=== PATIENT | male | born 1965 | race Caucasian/White ===

== ENCOUNTER → 2020-08-29 10:14 | Outpatient (BNVA) | payer OTHER, SELFPAY | PROVIDERS: Family Provider Internal Medicine; PCP Nurse Practitioner Family; Visit Provider Urology | DX: Z12.5 Encounter for screening for malignant neoplasm of prostate (principal); R79.89 Other specified abnormal findings of blood chemistry; N52.9 Male erectile dysfunction, unspecified | CPT/HCPCS: 81003; 84403; G0103 ==

== ENCOUNTER → 2024-02-15 14:30 | Outpatient (BNVA) | payer OTHER, SELFPAY | PROVIDERS: PCP Nurse Practitioner Family; Visit Provider Podiatrist Foot & Ankle Surgery | DX: E11.42 Type 2 diabetes mellitus with diabetic polyneuropathy; L60.3 Nail dystrophy; M20.41 Other hammer toe(s) (acquired), right foot; M20.42 Other hammer toe(s) (acquired), left foot | CPT/HCPCS: 73630 ==

== ENCOUNTER 2024-03-22 16:45 | Outpatient (CLI) | payer OTHER, SELFPAY | END 2024-03-22 16:46 | disposition home or self-care (01) | LOC: SLEEP 03-23 09:19 | PROVIDERS: PCP Nurse Practitioner Family; Visit Provider Nurse Practitioner Family | DX: G47.33 Obstructive sleep apnea (adult) (pediatric) (principal); G47.36 Sleep related hypoventilation in conditions classified elsewhere | CPT/HCPCS: G0399 ==

== ENCOUNTER 2024-06-07 20:00 | Outpatient (CLI) | payer OTHER, SELFPAY | END 2024-06-07 20:01 | disposition home or self-care (01) | LOC: SLEEP 22:22 | PROVIDERS: PCP Nurse Practitioner Family; Visit Provider Nurse Practitioner Family | DX: G47.33 Obstructive sleep apnea (adult) (pediatric) (principal); Z99.89 Dependence on other enabling machines and devices | CPT/HCPCS: 95811 ==

== ENCOUNTER 2025-04-18 13:52 | Outpatient (CLI) | payer OTHER, SELFPAY ==
--- NOTE | 2025-04-18 14:03 | MR_ITS ---
WS: [id number] MRA HEAD TECHNIQUE: Axial 3-D TOF images obtained with axial images and axial, sagittal, and coronal 2-D reformatted images. CLINICAL INFORMATION: BINOCULAR VISION DEFECT, BILATERAL, UNSPECIFIED ISORDER OF COMPARISON: None. FINDINGS: Distal vertebral arteries are patent. Basilar artery is patent. 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 Normal vascularity to the TRAILER ASSEMBLER territory bilaterally. Both ICAs are patent at the skull base. Patent anterior communicating artery. Normal vascularity to the CLARISSE and MCA territories bilaterally. No evidence of proximal flow-limiting stenosis. Suggestion of a very tiny incidental aneurysm in the LEFT carotid siphon just prior to the takeoff of the ophthalmic artery only seen on the sagittal reformatted images. This measures approximate 1.5 mm. MR/MR angio head wo con [id number] IMPRESSION: 1. No evidence of proximal flow-limiting stenosis. 2. 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 3. Possible very tiny incidental aneurysm in the LEFT carotid siphon just prox imal to the takeoff of the ophthalmic artery measuring 1.5 mm only well seen on the sagittal reformatted images. 4. No other suspicious findings.
--- NOTE | 2025-04-18 14:08 | USCV_ITS ---
David Mcgraw Age: 59 Gender: M : 1965 Exam Date: 04/18/2025 14:21 Ordering Phys: Cristina Tafoya [employer] T[employer]ER [employer]OM[employer]PER T[employer]ER Technologist: USR Exam Location: [facility] – [place], [place] Indication: dizziness Risk Factors: Previous Vascular Surgery: Right Brachial BP: / Left Brachial BP: / Right Left Velocity (cm/s) Spectral Plaque Velocity (cm/s) Spectral Plaque Syst/Diast Broadening Syst/Diast Broadening 50.40/ 16.70 Prox CCA 71.50 / 29.20 74.20/ 28.30 Mid CCA 73.20 / 33.50 56.20/ 17.00 Distal CCA 85.60 / 20.90 55.40/ 19.50 Prox ICA 24.30 / 8.60 43.10/ 19.50 Mid ICA 33.30 / 14.20 40.70/ 19.50 Distal ICA 43.50 / 23.20 58.60 ECA 50.20 1.00 ICA/CCA 0.30 Antegrade Vertebral Antegrade 21.10/ 7.30 cm/s 37.00/ 10.10 cm/s Tri Subclavian Tri 70.80 65.80 FINDINGS Comparison: none available. No significant elevation of systolic or diastolic velocities. Waveforms are normal. No plaque identified. CONCLUSIONS Normal carotid doppler ultrasound. Dr. Shreya Maurice DO (Electronically Signed) Final Date: 18 April 2025 14:42 S
== END 2025-04-18 13:53 | disposition home or self-care (01) ==
LOC: RAD 13:52
PROVIDERS: PCP Nurse Practitioner Family; Visit Provider Nurse Practitioner Family
DX: R42 Dizziness and giddiness (principal); H53.30 Unspecified disorder of binocular vision
CPT/HCPCS: 70544; 93880

== ENCOUNTER → 2025-05-24 15:12 | Outpatient (BNVA) | payer OTHER, SELFPAY | PROVIDERS: PCP Nurse Practitioner Family; Visit Provider Student in an Organized Health Care Education/Training Program | DX: M79.641 Pain in right hand (principal); M79.642 Pain in left hand; M72.0 Palmar fascial fibromatosis [Dupuytren] | CPT/HCPCS: 73130 ==